=== PATIENT | male | born 1975 | race Caucasian/White ===

== ENCOUNTER 2017-06-30 13:15 | Emergency (ER) | payer BC ==
[~2017-06-30] VITALS: Ht 177.8 cm; Wt 117.9 kg
[~2017-06-30 13:15] MED LIST: IBUPROFEN 400400 M2 PO; IBUPROFEN 600600 M1 PO; NORCO 5-325 TA1 EACH PO
[2017-06-30] MEDS ORDERED: CHANTIX1 MG PO (13:39)
[2017-06-30] MEDS ORDERED: IBUPROFEN 800800 MG PO (15:30)
[2017-06-30] MEDS ORDERED: TRAMADOL 50 MG50 MG PO (15:30)
[2017-06-30 16:30] VITALS: BP 135/80
== END 2017-06-30 16:35 | disposition home or self-care (01) ==
LOC: M.ERS 13:15
DX: S83.8X1A Sprain of other specified parts of right knee, initial encounter (principal); G51.0 Bell's palsy; F17.200 Nicotine dependence, unspecified, uncomplicated; X50.1XXA Overexertion from prolonged static or awkward postures, initial encounter; Y93.89 Activity, other specified; Y92.89 Other specified places as the place of occurrence of the external cause; Y99.8 Other external cause status